=== PATIENT | male | born 1940 | race Caucasian/White ===

== ENCOUNTER 2017-03-28 00:43 | Day surgery (SDC) | payer MEDICARE, OTHER ==
[~2017-03-28] VITALS: Ht 165.1 cm; Wt 73.6 kg
[2017-03-28] VITALS (11 sets, daily range): BP systolic 95–148; BP diastolic 51–107; PULSE 62–68; RESP 14–18
[~2017-03-28 00:43] MED LIST: ASPI-973 PO; BENA40TA2 PO; CALC-721 PO; CRES20T PO; FLUT12AE8 IH; GLUCOSAMINE PO; HYDR12.5 PO; METF500T4 PO; METO50TA3 PO; MULT-1007 PO; OMEG1CAP5 PO; OMEP-113 PO; RES30 PO
[2017-03-28] MEDS ORDERED: 0.9% Sodium Chloride 1,000 ML IV ONE (06:35)
[2017-03-28 08:07] LABS: BASOPHILS % (AUTO) 0.2 % (0-3); EOSINOPHILS % (AUTO) 1.9 % (0-5); MONOCYTES % (AUTO) 10.3 % (4-12); Mean Corpuscular Hemoglobin 26.4 pg (27.0-35.0); Mean Corpuscular Volume 79.9 fL (81-100); NEUTROPHILS % (AUTO) 76.9 % (40-74); Platelet Count 247 bil/L (150-400)
[2017-03-28] MEDS ORDERED: Heparin 1,000 Unit/mL 10 mL Inj ONE (08:29)
[2017-03-28] MEDS ORDERED: Nitroglycerin 50,000 mcg/250 mL D5W Premix IV ONE (08:29)
[2017-03-28] MEDS ORDERED: Heparin 10,000 Unit/1,000 mL NS Premix IV ONE (08:30)
[2017-03-28] MEDS ORDERED: CARV25TA2 PO (08:48)
[2017-03-28] MEDS ORDERED: ZOLP5TAB6 PO (08:48)
[2017-03-28] MEDS ORDERED: fentaNYL-PF 50 mCg/mL 2 mL Inj ONE (09:15)
--- NOTE | 2017-03-28 15:36 | DI96 ---
[address] [address] PERIPHERAL CATHETERIZATION/INTERVENTION REPORT PATIENT: URSZULA VELARDE : 1940 MR#: [id number] ADMIT: 03/28/2017 JOB ID: [id number] DATE OF PROCEDURE: 03/28/2017 PATIENT PROFILE: The patient is a 76-year-old male with history of diabetes, hypertension, hyperlipidemia, and known coronary artery disease. The patient has claudication of the left lower extremity for several months. PROCEDURE: 1. Conscious sedation for 17 minutes. 2. Vascular access from the right groin. 3. Pelvic angiogram with distal runoff. VASCULAR CLOSURE DEVICE: None. COMPLICATION: None. METHOD: Conscious sedation was achieved with IV Versed and IV fentanyl. Vascular access was obtained from the right groin under 1% lidocaine local anesthesia using a 4-Montenegrin sheath. A 4-Montenegrin pigtail catheter was advanced to the lower abdominal aorta and pelvic angiogram was performed in the AP view by injecting contrast at the rate of 10 cc/second for 8 seconds. The pelvic angiogram was also performed in the PALMA and MALAY oblique views. Following sheath removal, hemostasis was achieved by manual compression. The patient tolerated the procedure well. He was transferred to the [facility] in good condition. TOTAL CONTRAST USED: 100 cc. FLUOROSCOPY TIME: 0.9 minutes. RESULTS: 1. The distal abdominal aorta is normal. 2. Bilateral common iliac arteries, external iliac arteries and internal iliac arteries are normal. 3. The right common femoral artery has minor irregularity of 30% stenosis. The left common femoral artery has severe eccentric 95% stenosis in the mid portion. 4. Bilateral superficial femoral arteries have minor irregularity of 10% to 20% stenosis. Bilateral profunda arteries are normal. 5. Bilateral popliteal arteries have minor irregularity of 10% stenosis. 6. There is three-vessel runoff below the right knee and two-vessel runoff below the left knee. CONCLUSION: 1. Severe left common femoral artery stenosis. 2. Moderate right common femoral artery stenosis. PLAN: The patient will be referred to Dr. Mik Ramos for left common femoral artery endarterectomy. [facility]
== END 2017-03-28 23:59 | disposition home or self-care (01) ==
LOC: SOUO 00:43
PROVIDERS: ATTEND Internal Medicine Interventional Cardiology
DX: I70.212 Atherosclerosis of native arteries of extremities with intermittent claudication, left leg (principal); I10 Essential (primary) hypertension; E11.9 Type 2 diabetes mellitus without complications; I25.10 Atherosclerotic heart disease of native coronary artery without angina pectoris; E78.5 Hyperlipidemia, unspecified; G47.33 Obstructive sleep apnea (adult) (pediatric); Z82.49 Family history of ischemic heart disease and other diseases of the circulatory system; Z98.61 Coronary angioplasty status; Z79.82 Long term (current) use of aspirin; Z79.84 Long term (current) use of oral hypoglycemic drugs
CPT/HCPCS: 36200; 36415; 75716; 80048; 85025; 99152; C1769; J1644; J2060; J2250; J3010; J7030; Q9967